=== PATIENT | male | born 1950 | race Caucasian/White ===

== ENCOUNTER 2020-05-14 19:50 | Emergency (ER) | payer MEDICARE ==
[~2020-05-14] VITALS: Ht 180.3 cm; Wt 102.3 kg
[2020-05-14] MEDS ORDERED: BLOOD PRESSURE MED PO (20:06)
[2020-05-14 21:16] LABS: BASOPHILS % (AUTO) 0.5 % (0.0-2.0); EOSINOPHILS % (AUTO) 2.9 % (1.0-6.0); HEMOGLOBIN 15.3 g/dL (13.5-17.5); LYMPHOCYTES % (AUTO) 19.9 % (22.0-44.0); MEAN CORPUSCULAR HEMOGLOBIN 31.2 pg (26.0-34.0); MEAN CORPUSCULAR HGB CONC 35.7 G/dL (31.0-37.0); MEAN CORPUSCULAR VOLUME 87 fL (80-100); MONOCYTES # (AUTO) 0.7 K/uL (0.1-1.0); MONOCYTES % (AUTO) 13.4 % (2.0-9.0); NEUTROPHILS # (AUTO) 3.1 K/uL (1.8-7.7); NEUTROPHILS % (AUTO) 63.3 % (40.0-70.0); PLATELET COUNT (AUTO) 151 K/uL (150-450); RED BLOOD CELL COUNT(AUTO) 4.92 MIL/uL (4.50-5.90)
[2020-05-14 21:24] LABS: ANION GAP 10 mmol/L (8-16); CARBON DIOXIDE 22 mmol/L (22-29); CHLORIDE 100 mmol/L (98-107); CREATININE 0.72 mg/dL (0.60-1.30); GLOMERULAR FILTR. RATE CALC > 60 mL/min (>60); GLUCOSE,RANDOM 117 mg/dL (70-110); POTASSIUM 3.8 mmol/L (3.5-5.1); SODIUM SERUM 132 mmol/L (136-145); UREA NITROGEN, BLOOD 13 mg/dL (7-18)
[2020-05-14 21:34] LABS: INR 0.9 (0.9-1.1); PROTHROMBIN TIME 9.9 SEC (9.4-11.6)
[2020-05-14 21:48] LABS: ALBUMIN 3.8 g/dL (3.4-5.0); ALKALINE PHOSPHATASE 85 U/L (46-116); ASPARTATE AMINOTRANSFERASE 30 U/L (15-37); BILIRUBIN,TOTAL 0.4 mg/dL (0.1-1.0); CREATINE KINASE, TOTAL ONLY 127 U/L (39-308); LIPASE 186 U/L (73-393); TOTAL PROTEIN, SERUM 7.8 g/dL (6.4-8.2)
[2020-05-14 22:08] LABS: ALANINE AMINOTRANSFERASE 53 U/L (12-78)
[2020-05-14 23:00] VITALS: BP 145/83
== END 2020-05-15 | disposition left against medical advice (07) ==
LOC: EMS 19:51
DX: U07.1 COVID-19 (principal); J12.89 Other viral pneumonia; R07.9 Chest pain, unspecified; I10 Essential (primary) hypertension
CPT/HCPCS: 93005; 36415-L1; 36415-TC; 71045-TC